=== PATIENT | male | born 1960 | race Caucasian/White ===

== ENCOUNTER 2016-06-30 17:52 | Inpatient (IN) | payer OTHER ==
[~2016-06-30] VITALS: Ht 188 cm; Wt 78.8 kg
[~2016-06-30 17:52] MED LIST: AMIT25TA PO; AMOX1TAB64 PO; CYCL-259 PO; HYDR-3240 PO; TRAM50TA2 PO
[2016-06-30] MEDS ORDERED: SODIUM CHLORIDE 0.9% 1,000ML IVBOLUS ONE (18:30)
[2016-06-30] MEDS ORDERED: SODIUM CHLORIDE FLUSH 10ML SYR IVF ONE (18:30)
[2016-06-30 19:02] LABS: HEMOGLOBIN 14.4 g/dL (13.7-18.0)
[2016-06-30 19:09] LABS: BLOOD UREA NITROGEN 17 mg/dL (7-18)
[2016-06-30] MEDS ORDERED: CEFTAROLINE 600 MG in SODIUM CHLORIDE 0.9% 100 ML IV ONE (20:30)
[2016-06-30] MEDS ORDERED: CYCLOBENZAPRINE 10 MG TABLET PO PRN (21:00)
[2016-06-30] MEDS ORDERED: ACETAMINOPHEN 325 MG TABLET PO PRN (21:30)
[2016-06-30] MEDS ORDERED: TRAZODONE 50MG TABLET PO PRN (21:30)
[2016-06-30] MEDS ORDERED: MORPHINE SULFATE 4 MG/ML, 1ML IVPush PRN (21:30)
[2016-06-30] MEDS ORDERED: BISACODYL 10 MG SUPP PR PRN (21:30)
[2016-06-30] MEDS ORDERED: DOCUSATE 100 MG CAPSULE PO PRN (21:30)
[2016-06-30 22:17] VITALS: BP 94/63
[2016-06-30] MEDS: SODIUM CHLORIDE 0.9% 1,000 ML IV SCH (22:22)
[2016-06-30] MEDS: AMPICILLIN/SULBACTAM 1,500 MG in SODIUM CHLORIDE 0.9% 50 ML IV SCH (22:50)
[2016-06-30] MEDS: LACTOBACILLUS 1GM/ PACKET PO SCH (22:50)
[2016-06-30] MEDS: ENOXAPARIN 40 MG/0.4 ML SQ SCH (22:51)
[2016-06-30] MEDS: HYDROcodone/APAP 5/325 TABLET PO PRN (23:43)
[2016-07-01] MEDS ORDERED: POTASSIUM PHOSPHATE 22 MEQ in SODIUM CHLORIDE 0.9% 500 ML IV ONE (01:00)
[2016-07-01] MEDS: SODIUM CHLORIDE 0.9% 1,000 ML IV SCH ×2 (02:14→10:19)
[2016-07-01 03:43] VITALS: BP 97/61
[2016-07-01 04:41] LABS: BLOOD UREA NITROGEN 15 mg/dL (7-18)
[2016-07-01] MEDS: LACTOBACILLUS 1GM/ PACKET PO SCH ×4 (05:42→21:23)
[2016-07-01] MEDS: AMPICILLIN/SULBACTAM 1,500 MG in SODIUM CHLORIDE 0.9% 50 ML IV SCH ×3 (05:42→23:12)
[2016-07-01 08:03] VITALS: BP 110/74
[2016-07-01 14:09] VITALS: BP 110/74
[2016-07-01] MEDS: HYDROcodone/APAP 5/325 TABLET PO PRN (21:23)
[2016-07-01] MEDS: ENOXAPARIN 40 MG/0.4 ML SQ SCH (21:23)
[2016-07-01 21:40] VITALS: BP 111/75
[2016-07-02 00:54] VITALS: BP 121/84
[2016-07-02 05:50] LABS: HEMOGLOBIN 12.4 g/dL (13.7-18.0)
[2016-07-02] MEDS: AMPICILLIN/SULBACTAM 1,500 MG in SODIUM CHLORIDE 0.9% 50 ML IV SCH ×3 (05:58→23:03)
[2016-07-02] MEDS: LACTOBACILLUS 1GM/ PACKET PO SCH ×4 (05:58→22:13)
[2016-07-02 06:00] LABS: BLOOD UREA NITROGEN 9 mg/dL (7-18)
[2016-07-02 07:14] VITALS: BP 130/91
[2016-07-02 12:37] VITALS: BP 140/97
[2016-07-02 18:43] VITALS: BP 99/65
[2016-07-02] MEDS: ENOXAPARIN 40 MG/0.4 ML SQ SCH (22:13)
[2016-07-02 23:03] VITALS: BP 137/93
[2016-07-03 01:34] VITALS: BP 135/88
[2016-07-03 05:02] LABS: HEMOGLOBIN 13.3 g/dL (13.7-18.0)
[2016-07-03 05:06] LABS: BLOOD UREA NITROGEN 8 mg/dL (7-18)
[2016-07-03] MEDS: LACTOBACILLUS 1GM/ PACKET PO SCH ×4 (06:13→20:44)
[2016-07-03] MEDS: AMPICILLIN/SULBACTAM 1,500 MG in SODIUM CHLORIDE 0.9% 50 ML IV SCH (06:13)
[2016-07-03 08:37] VITALS: BP 134/94
[2016-07-03] MEDS: HYDROcodone/APAP 5/325 TABLET PO PRN ×2 (10:47→23:20)
[2016-07-03] MEDS: CEFTAROLINE 600 MG in SODIUM CHLORIDE 0.9% 100 ML IV SCH ×2 (12:23→23:21)
[2016-07-03 12:44] VITALS: BP 94/59
[2016-07-03 19:20] VITALS: BP 108/64
[2016-07-03] MEDS: ENOXAPARIN 40 MG/0.4 ML SQ SCH (20:45)
[2016-07-04 04:19] VITALS: BP 115/62
[2016-07-04 04:35] LABS: HEMOGLOBIN 12.6 g/dL (13.7-18.0)
[2016-07-04 04:49] LABS: BLOOD UREA NITROGEN 10 mg/dL (7-18)
[2016-07-04] MEDS: LACTOBACILLUS 1GM/ PACKET PO SCH ×4 (06:07→21:29)
[2016-07-04 08:30] VITALS: BP 133/83
[2016-07-04] MEDS: CEFTAROLINE 600 MG in SODIUM CHLORIDE 0.9% 100 ML IV SCH ×2 (10:55→23:13)
[2016-07-04 15:04] VITALS: BP 100/65
[2016-07-04 20:00] VITALS: BP 98/63
[2016-07-04] MEDS: ENOXAPARIN 40 MG/0.4 ML SQ SCH (21:29)
[2016-07-05 02:47] VITALS: BP 124/90
[2016-07-05 05:54] LABS: HEMOGLOBIN 13.2 g/dL (13.7-18.0)
[2016-07-05 06:20] LABS: BLOOD UREA NITROGEN 10 mg/dL (7-18)
[2016-07-05] MEDS: LACTOBACILLUS 1GM/ PACKET PO SCH ×4 (06:41→21:44)
[2016-07-05 07:59] VITALS: BP 116/82
[2016-07-05] MEDS: CEFTAROLINE 600 MG in SODIUM CHLORIDE 0.9% 100 ML IV SCH ×2 (11:25→23:26)
[2016-07-05 13:45] VITALS: BP 108/80
[2016-07-05 18:45] VITALS: BP 117/80
[2016-07-05] MEDS: ENOXAPARIN 40 MG/0.4 ML SQ SCH (21:45)
[2016-07-06 02:32] VITALS: BP 100/64
[2016-07-06 06:43] VITALS: BP 96/63
[2016-07-06] MEDS: LACTOBACILLUS 1GM/ PACKET PO SCH ×4 (08:48→20:56)
[2016-07-06] MEDS: CEFTAROLINE 600 MG in SODIUM CHLORIDE 0.9% 100 ML IV SCH (12:17)
[2016-07-06 12:56] VITALS: BP 95/63
[2016-07-06 19:40] VITALS: BP 85/60
[2016-07-06] MEDS: ENOXAPARIN 40 MG/0.4 ML SQ SCH (20:56)
[2016-07-06 21:00] VITALS: BP 104/78
[2016-07-07] MEDS: CEFTAROLINE 600 MG in SODIUM CHLORIDE 0.9% 100 ML IV SCH ×2 (00:01→11:12)
[2016-07-07 01:58] VITALS: BP 99/62
[2016-07-07] MEDS: LACTOBACILLUS 1GM/ PACKET PO SCH ×2 (06:30→11:12)
[2016-07-07 06:47] VITALS: BP 105/68
[2016-07-07] MEDS ORDERED: SULF1TAB24 PO (12:38)
[2016-07-07 13:26] VITALS: BP 116/78
== END 2016-07-07 15:15 | disposition home or self-care (01) | DRG 602 ==
LOC: ED 20:03 → EDIP 21:13 → ED 21:24 → 3NW 21:32 → 4NOR 07-04 18:11 → DCLOUNGE 07-07 15:05
PROVIDERS: ADMIT Internal Medicine; ATTEND Family Medicine
PROC: 0T9B70Z Drainage of Bladder with Drainage Device, Via Natural or Artificial Opening (ICD-10-PCS; principal; 2016-07-02)
DX: L03.115 Cellulitis of right lower limb (principal); G82.50 Quadriplegia, unspecified; E87.1 Hypo-osmolality and hyponatremia; E44.1 Mild protein-calorie malnutrition; G47.00 Insomnia, unspecified; G89.29 Other chronic pain; D64.9 Anemia, unspecified; M54.9 Dorsalgia, unspecified; Z99.3 Dependence on wheelchair; Z68.22 Body mass index [BMI] 22.0-22.9, adult; Z80.0 Family history of malignant neoplasm of digestive organs; Z79.899 Other long term (current) drug therapy
CPT/HCPCS: 36415; 51702; 80048; 81001; 82040; 83735; 84100; 85025; 87040; 93306; 93922; 96360; J0712; J1650; J0295; J7030; J7040

== ENCOUNTER 2016-11-03 16:59 | Inpatient (IN) | payer OTHER ==
[~2016-11-03] VITALS: Ht 188 cm; Wt 79.1 kg
[~2016-11-03 16:59] MED LIST changes: +AMIT10TA PO; +PENICILLIN PO; +SULF1TAB24 PO
[2016-11-03 17:15] VITALS: BP 114/76
[2016-11-03 19:06] VITALS: BP 112/74
[2016-11-03] MEDS ORDERED: SODIUM CHLORIDE 0.9% 1,000 ML IV SCH ×2 (19:30)
[2016-11-03] MEDS ORDERED: HYDROcodone/APAP 5/325 TABLET PO PRN (19:30)
[2016-11-03] MEDS ORDERED: NULYTELY PO SCH (19:30)
[2016-11-03] MEDS: NULYTELY HOMEMEDPO SCH (19:43)
[2016-11-04] MEDS: NULYTELY HOMEMEDPO SCH (04:27)
[2016-11-04 04:46] VITALS: BP 114/80
[2016-11-04 06:49] VITALS: BP 124/91
[2016-11-04] MEDS ORDERED: PROPOFOL 10 MG/ML, 20ML ONE (12:31)
[2016-11-04] MEDS ORDERED: PHENYLEPHRINE 10 MG/ML ONE (12:31)
[2016-11-04] MEDS ORDERED: LABETALOL 5MG/ML, 20ML IV PRN (13:30)
[2016-11-04] MEDS ORDERED: PROMETHAZINE 25 MG/ML, 1ML IV PRN (13:30)
[2016-11-04] MEDS ORDERED: FENTANYL PF 100 MCG/2ML IV PRN (13:30)
[2016-11-04] MEDS ORDERED: hydrALAzine 20 MG/ML, 1ML IV PRN (13:30)
[2016-11-04] MEDS ORDERED: HYDROmorphone 1 MG/ML, 1ML IV PRN (13:30)
[2016-11-04] MEDS ORDERED: ALBUTEROL/IPRATROPIUM 2.5MG/0.5MG, 3 ML NPPB PRN (13:30)
[2016-11-04] MEDS ORDERED: OXYcodone 5 MG/5 ML ORAL.SOL UDC PO PRN (13:30)
[2016-11-04] MEDS ORDERED: ACETAMINOPHEN 325 MG TABLET PO PRN (13:30)
[2016-11-04] MEDS ORDERED: ONDANSETRON 2MG/ML, 2ML IVPush PRN (13:30)
[2016-11-04] MEDS ORDERED: MIDAZOLAM 1 MG/ML, 5ML IV PRN (13:30)
[2016-11-04 13:59] VITALS: BP 110/76
== END 2016-11-04 17:10 | disposition home or self-care (01) | DRG 392 ==
LOC: 3NW 16:59 → EDSTATUS 11-04 12:30
PROVIDERS: ADMIT Internal Medicine; ATTEND Internal Medicine
PROC: 0DJD8ZZ Inspection of Lower Intestinal Tract, Via Natural or Artificial Opening Endoscopic (ICD-10-PCS; principal; 2016-11-04 12:30)
DX: R19.4 Change in bowel habit (principal); K57.30 Diverticulosis of large intestine without perforation or abscess without bleeding; G83.9 Paralytic syndrome, unspecified; N31.9 Neuromuscular dysfunction of bladder, unspecified; G90.4 Autonomic dysreflexia; M62.838 Other muscle spasm; G89.21 Chronic pain due to trauma; M19.90 Unspecified osteoarthritis, unspecified site; Z80.0 Family history of malignant neoplasm of digestive organs; Z79.899 Other long term (current) drug therapy
CPT/HCPCS: J2704; J2370